=== PATIENT | male | born 1970 | race Caucasian/White ===

== ENCOUNTER 2018-08-14 09:20 | Emergency (ER) | payer OTHER, SELFPAY ==
[2018-08-14 09:21] VITALS: BP 163/103; PULSE 59; RESP 18; TEMP 36.6; O2SAT 98; BMI 31.9
--- NOTE | 2018-08-14 09:33 | CT_ITS ---
STUDY: CT BRAIN WITHOUT CONTRAST REASON FOR EXAM: Male, 48 years old. Laceration above the left orbit following a fall. RADIATION DOSAGE (If Supplied By Facility): CTDIvol = ( 44.99 ) mGy, DLP = ( 782.05 ) mGycm TECHNIQUE: Transaxial CT imaging of the brain was performed without administration of intravenous contrast material. Individualized dose optimization techniques were used for this CT. COMPARISON: None. FINDINGS: Normal soft tissue structures. Normal calvarium. A dressing is seen overlying the left super orbital region. Normal size ventricles and extra-axial spaces for the patient's age. Normal white matter tracts of the cerebral hemispheres. 4.5 mm rounded hypolucency in the left insular cortex of the temporal lobe suggestive of an old lacunar infarct. Normal brainstem. Normal cerebellum. There is no intracranial hemorrhage. There are no findings of an acute ischemic infarction. Normal visualized paranasal sinuses. CT/Brain/Head without Contrast IMPRESSION: Findings suggestive of an old small lacunar infarct in the insular cortex of the left temporal lobe. Electronically Signed: Richar Wade MD at 10:02 EST Tel [phone], Service support ,
--- NOTE | 2018-08-14 09:38 | ED.VISSUMM ---
- ER Visit Summary Date of Service: 08/14/18 Chief Complaint: Fall History of Present Illness: The patient is a 48 M presenting after a fall. Patient was trying to move a cabinet out of a trailer and slipped and fell. He hit his head on the cabinet. He states that things went black for 10 seconds. He states he was awake the entire time and did not completely lose consciousness. He has no amnesia to the event. No vomiting. He states that he initially felt dizzy but this is now improved. He hit his left knee and left shoulder. He is able to ambulate. He has a laceration lateral to his left eye. No vision changes. No other complaints. Last tetanus is unknown. Physical Examination: Vitals are stable. Patient is afebrile. Alert no acute distress. HEENT exam 1.5 cm laceration lateral to left eye. PERRL, EOMI. Neck is nontender Lungs are clear and equal bilaterally. Heart is regular rate and rhythm. Extremities mild anterior left knee and mild anterior left shoulder tenderness with active full range of motion. Skin is warm and dry. No focal neurologic deficit. Remainder of exam is unremarkable. Emergency Department Course and Treatment: CT head shows there is no intracranial hemorrhage. Findings suggestive of an old small lacunar infarct in the insular cortex of the left temporal lobe. Patient was given tetanus IM. He was given Motrin. Laceration was irrigated. Anesthetized with LET. 3, 5-0 simple sutures were placed. Patient tolerated this well. Advised wound care instructions. Advised to follow-up with primary care physician. Advised return to ED for worsening complaints. Disposition: Discharge home Impression: Status post mechanical fall, concussion without loss of consciousness, facial laceration, laceration repair, left knee and left shoulder contusion This note was generated with [employer] dictation software. It may contain incorrect words, spelling, and punctuation that were not noted in review of the chart prior to signing ED Disposition - Plan for ED Patient: Chief Complaint: Head Injury Instructions: ED Concussion, ED Laceration Facial Sutr Tape Referrals: Michel Mahmood MD [Primary Care Provider] -
[2018-08-14] MEDS: Diphth,Pertuss(Acell),Tet Vac 0.5 ML Vial IM (09:44)
[2018-08-14] MEDS: Lidocaine/Epi/Tetracaine 50 ML 1 APPLIC TOPICAL (09:44)
--- NOTE | 2018-08-14 10:28 | ED.DEP ---
ED Disposition - Plan for ED Patient: Chief Complaint: Head Injury Instructions: ED Laceration Facial Sutr Tape, ED Concussion Referrals: Michel Mahmood MD [Primary Care Provider] -
[2018-08-14] MEDS: Ibuprofen 600 MG Tablet PO (10:51)
== END 2018-08-14 11:06 | disposition home or self-care (01) ==
PROVIDERS: Emergency Provider Emergency Medicine; Family Provider Family Medicine; PCP Family Medicine
DX: S06.0X0A Concussion without loss of consciousness, initial encounter (principal); S01.112A Laceration without foreign body of left eyelid and periocular area, initial encounter; S40.012A Contusion of left shoulder, initial encounter; S80.02XA Contusion of left knee, initial encounter; F17.220 Nicotine dependence, chewing tobacco, uncomplicated; W01.198A Fall on same level from slipping, tripping and stumbling with subsequent striking against other object, initial encounter; Y93.89 Activity, other specified; Y92.02 Mobile home as the place of occurrence of the external cause; Y99.8 Other external cause status
CPT/HCPCS: 12011; 70450; 90471; 90715; 99283

== ENCOUNTER 2019-04-07 13:50 | Emergency (ER) | payer OTHER, SELFPAY ==
[2019-04-07 13:51] VITALS: BP 138/97; PULSE 67; RESP 16; TEMP 36.9; O2SAT 95; BMI 34.8
--- NOTE | 2019-04-07 14:35 | RAD_ITS ---
STUDY: X-RAY - RIGHT WRIST REASON FOR EXAM: Male, 48 years old. History of fall. TECHNIQUE: 3 view(s) of the wrist were obtained. COMPARISON: None. FINDINGS: Questionable old avulsion fracture of the ulnar styloid. Normal radiocarpal articulation. Normal distal radioulnar articulation. Avulsion fracture of the dorsal aspect of the triquetrum. Normal carpal articulations. Normal carpometacarpal articulation of the thumb. Normal second through fifth carpometacarpal articulations. Normal visualized metacarpal bones. Dorsal soft tissue swelling. RAD/Wrist min 3 Views IMPRESSION: Avulsion fracture of the dorsal aspect of the triquetrum with overlying soft tissue swelling. Electronically Signed: Richar Wade, at 15:10 EDT , Service support ,
[2019-04-07] MEDS: Ibuprofen 400 MG Tablet 800 MG PO (14:48)
--- NOTE | 2019-04-07 16:03 | ED.VISSUMM ---
- ER Visit Summary Date of Service: 04/07/19 Chief Complaint: Fall from a ladder approximately. Complaining of right wrist pain. History of Present Illness: The patient is a 48 M history of anemia, diverticulitis and prior partial colectomy. Thinks that he may have broken his wrist as a child. But is never had surgery to it. And dominant. He was at work today around 9:30 AM. He fell off a ladder approximately. Said he fell backwards. Is complaining of right wrist pain just distal to his ulnar styloid. Said he had his head but no LOC. Denies any neck pain. No chest or abdominal pain. No significant back pain. Physical Examination: Middle-aged male. No acute distress. Vital signs stable afebrile. HEENT exam unremarkable. Pupils round reactive light. Scalp is nontender there is no hematoma. No facial trauma. C-spine nontender. Thoracic and lumbar spine nontender. Normal range of motion to his neck. Trachea midline. Lungs clear to auscultation bilaterally. Heart regular rhythm no murmur. Chest were nontender. Abdomen soft nontender. Extremities moves all 4. Neurovascular intact. His right wrist distally just distal to the ulnar styloid joint is tender to palpation. He has decreased flexion extension due to pain. Decreased ulnar and radial deviation. There is mild swelling. Itself is nontender neurovascular intact with normal touch sensation and cap refill. Proximal forearm elbow and right shoulder are nontender. Other extremities are unremarkable. Neurologically is awake alert with a GCS of 15. Test Results: X-ray right wrist 3 views read by myself the radiologist shows a avulsion fracture of the right triquetrum bone of the wrist just distal to the ulnar styloid. Emergency Department Course and Treatment: Patient placed in a short arm AP splint. Ice and elevate. Motrin here for pain. [place] for more severe pain. Treatment Plan: Ice and elevate. Motrin for pain and swelling. [place] for more severe pain. Follow-up with of orthopedics. Disposition: Discharge Impression: Fall from approximately 10 feet from a ladder Worker's Comp. Right wrist right atrium wound avulsion fracture Short arm AP splint by ER This note was generated with [employer] dictation software. It may contain incorrect words, spelling, and punctuation that were not noted in review of the chart prior to signing ED Disposition - Plan for ED Patient: Referrals: Michel Mahmood MD [Primary Care Provider] -
--- NOTE | 2019-04-07 16:07 | ED.DEP ---
ED Disposition - Plan for ED Patient: Prescriptions: Hydrocodone/Acetaminophen [[place] 5-325 Tablet] 1 ea PO 4X/DAY PRN PRN #20 tab PRN Reason: Pain Prescription Printed Referrals: Philly Roman DO [STAFF PHYSICIAN] - As soon as possible [facility] [GROUP OF PHYSICIANS] - As Needed Additional Instructions: Ice and elevate your right wrist to decrease pain and swelling. Keep your splint dry and clean. Motrin for pain and swelling and limited [place] for pain. Follow-up with of orthopedics for further evaluation of her right wrist and you may need a cast.
--- NOTE | 2019-04-07 16:27 | NURSING ---
splint applied by dr. chen for rt wrist fx. pt denies any need of sling at this time.
== END 2019-04-07 16:27 | disposition home or self-care (01) ==
PROVIDERS: Emergency Provider Emergency Medicine; Family Provider Family Medicine; PCP Family Medicine
DX: S62.101A Fracture of unspecified carpal bone, right wrist, initial encounter for closed fracture (principal); W11.XXXA Fall on and from ladder, initial encounter; Y93.9 Activity, unspecified; Y92.89 Other specified places as the place of occurrence of the external cause; Y99.0 Civilian activity done for income or pay
CPT/HCPCS: 29125; 73110; 99283

== ENCOUNTER → 2019-04-13 | Outpatient (CLI) | payer OTHER, SELFPAY ==
[2019-04-13 08:58] VITALS: BMI 34.8
--- NOTE | 2019-04-13 09:04 | RAD_ITS ---
STUDY: X-RAY - RIGHT HAND REASON FOR EXAM: Hand and wrist pain, fall last week. TECHNIQUE: 3 view(s) of the hand. COMPARISON: Radiographs of the wrist 04/07/2019. FINDINGS: Normal radiocarpal articulation. Normal distal radioulnar joint. There is an avulsion fracture at the dorsal aspect of the triquetrum. Normal carpal articulations Normal carpometacarpal articulation of the thumb. Normal second through fifth carpometacarpal joints. Normal metacarpi. Normal metacarpophalangeal joint of the thumb. Normal interphalangeal joint of the thumb. Normal proximal and distal phalanges of the thumb. Normal metacarpophalangeal joints of the second through fifth fingers. Normal proximal and distal interphalangeal joints of the second through fifth fingers. Normal phalanges of the second through fifth fingers. There is a small ossicle at the distal aspect of the ulnar styloid process. RAD/Hand Min 3 Views IMPRESSION: Avulsion fracture at the dorsal aspect of the triquetrum. Otherwise, unremarkable x-ray examination of the right hand. Electronically Signed: Biju Martinez MD at 12:56 EDT Tel , Service support ,
--- NOTE | 2019-04-13 09:04 | RAD_ITS ---
STUDY: X-RAY - RIGHT WRIST REASON FOR EXAM: Hand and wrist pain, fall last week. TECHNIQUE: 3 view(s) of the wrist were obtained. COMPARISON: Radiographs 04/07/2019. FINDINGS: Normal visualized distal radius. There is a small ossicle distal aspect of the ulnar styloid process as on the prior study. Normal radiocarpal articulation. Normal distal radioulnar articulation. There is an avulsion fracture at the dorsal aspect of the triquetrum without interval change. Normal carpal articulations. Normal carpometacarpal articulation of the thumb. Normal second through fifth carpometacarpal articulations. Normal visualized metacarpal bones. The soft tissue structures are unremarkable. RAD/Wrist min 3 Views IMPRESSION: No interval change of avulsion fracture at the dorsal aspect of the triquetrum. Electronically Signed: Biju Martinez MD at 12:56 EDT Tel , Service support ,
== END | disposition home or self-care (01) ==
LOC: HPRAD 09:03
PROVIDERS: Family Provider Family Medicine; PCP Family Medicine; Referring Provider Orthopaedic Surgery; Visit Provider Orthopaedic Surgery
DX: S69.91XA Unspecified injury of right wrist, hand and finger(s), initial encounter (principal)
CPT/HCPCS: 73110; 73130

== ENCOUNTER → 2019-05-04 | Outpatient (CLI) | payer OTHER, SELFPAY ==
[2019-05-04 09:00] VITALS: BMI 34.8
--- NOTE | 2019-05-04 09:05 | RAD_ITS ---
STUDY: X-RAY - RIGHT WRIST REASON FOR EXAM: Fracture follow-up. TECHNIQUE: 3 view(s) of the wrist were obtained. COMPARISON: Radiographs 04/13/2019 and 04/07/2019. FINDINGS: Normal visualized distal radius and ulna. Normal radiocarpal articulation. Normal distal radioulnar articulation. There is an avulsion fracture of the dorsal aspect of the triquetrum with little interval change. Normal carpal articulations. Normal carpometacarpal articulation of the thumb. Normal second through fifth carpometacarpal articulations. Normal visualized metacarpal bones. There is a small ossicle adjacent to the ulnar styloid process as on the prior study. RAD/Wrist min 3 Views IMPRESSION: No significant change of dorsal avulsion fracture of the triquetrum. Electronically Signed: Biju Martinez MD at 10:52 EDT Tel , Service support ,
== END | disposition home or self-care (01) ==
LOC: HPRAD 09:04
PROVIDERS: Family Provider Family Medicine; PCP Family Medicine; Referring Provider Orthopaedic Surgery; Visit Provider Orthopaedic Surgery
DX: S62.111A Displaced fracture of triquetrum [cuneiform] bone, right wrist, initial encounter for closed fracture (principal); S69.91XA Unspecified injury of right wrist, hand and finger(s), initial encounter
CPT/HCPCS: 73110

== ENCOUNTER → 2020-09-01 16:39 | Outpatient (CLI) | payer OTHER, SELFPAY ==
[2019-05-27 09:08] VITALS: BMI 34.8
[2020-09-01 17:34] LABS: D-Dimer Quantitative (DVT/PE) 0.27 FEU/ug/m (0.27-0.49)
== END ==
PROVIDERS: PCP Family Medicine; Referring Provider Family Medicine; Visit Provider Family Medicine
DX: R06.02 Shortness of breath (principal)
CPT/HCPCS: 85379

== ENCOUNTER → 2022-08-12 | Outpatient (CLI) | payer OTHER, SELFPAY ==
[2022-08-12 12:14] LABS: Absolute Neutrophil Count 3.7 X10^3/uL (2.0-7.7); Basophil# 0.05 X10^3/uL; Basophil% 0.8 % (0-1); Eosinophil# 0.38 X10^3/uL; Eosinophils% 5.8 % (0-5); Hematocrit 48.8 % (40-54); Hemoglobin 16.6 g/dL (13.0-16.5); Lymphocyte % 30.3 % (19-41); Mean Corpuscular Hgb 29.8 pg (27.0-32.0); Mean Corpuscular Volume 87.6 fL (80-94); Mean Platelet Vol. 10.2 fl (6.2-12.0); Monocyte# 0.45 X10^3/uL; Monocyte% 6.8 % (0-10); NRBC Flagged by Analyzer 0 % (0-5); Neutrophil # 3.67 X10^3/uL (2.7-7.7); Neutrophil % 55.7 % (47-70); Platelet Count 268 K/mm3 (150-450); RBC Distribution Width CV 13.1 % (11.6-14.6); RBC Distribution Width SD 42.4 fl (35.1-43.9); Red Blood Count 5.57 M/mm3 (4.6-6.2); White Blood Count 6.6 K/mm3 (4.4-11.0)
[2022-08-12 12:26] LABS: Insulin 47.8 mU/L (2.6-37.6)
[2022-08-12 12:39] LABS: AST(SGOT) 82 U/L (15-37); Alanine Aminotransfer ALT/SGPT 158 U/L (16-61); Albumin, Serum 4.1 g/dL (3.2-5.0); Alkaline Phosphatase 61 U/L (45-117); Anion Gap 5 (5-15); BUN 15 mg/dL (7-18); BUN/Creat Ratio 13.8 RATIO (10-20); Calcium,Total 9.5 mg/dL (8.5-10.1); Chloride 102 mmol/L (98-107); Cholesterol 275 mg/dL (200); Creatinine, Serum 1.09 mg/dL (0.70-1.30); EST Glomerular Filtration Rate 76 mL/min (>60); Est Glom Filt Rate - Afr Amer 92 mL/min (>60); Globulin 4.1 g/dL (2.2-4.2); Glucose 113 mg/dL (74-106); High Density Lipoprotein 32 mg/dL; PSA,Total - Annual Screen 0.65 ng/mL (0.00-4.00); Protein, Total 8.2 g/dL (6.4-8.2); Sodium Level 136 mmol/L (136-145); Thyroid Stim Hormone (TSH) 1.32 uIU/mL (0.358-3.74); Triglycerides 425 mg/dL
[2022-08-12 12:41] LABS: Hemoglobin A1c 6.1 % (3.8-5.6)
== END | disposition home or self-care (01) ==
LOC: LAB 10:52
PROVIDERS: PCP Internal Medicine; Referring Provider Internal Medicine; Visit Provider Internal Medicine
DX: Z00.00 Encounter for general adult medical examination without abnormal findings (principal); E55.9 Vitamin D deficiency, unspecified; E88.81 Metabolic syndrome and other insulin resistance; Z12.5 Encounter for screening for malignant neoplasm of prostate
CPT/HCPCS: 36415; 80053; 80061; 82306; 83036; 83525; 84153; 84443; 85025; G0103

== ENCOUNTER → 2022-08-22 | Outpatient (CLI) | payer OTHER, SELFPAY ==
--- NOTE | 2022-08-22 07:54 | US_ITS ---
STUDY: ABDOMINAL ULTRASOUND - RIGHT UPPER QUADRANT REASON FOR VISIT: Male, 52 years old insulin resistance, fatty liver TECHNIQUE: Ultrasound evaluation of the right upper quadrant was performed with real-time and static small-scale imaging. TECHNICAL QUALITY: Adequate. COMPARISON: July 25, 2014 CT scan abdomen and pelvis FINDINGS: Liver: The liver measures 21.3 cm. There is increased echogenicity consistent with fatty infiltration. The bile ducts are within normal limits. There is hepatic color flow. The direction of portal flow is hepatopetal. There is no demonstrated mass lesion. Gallbladder: Normal distended gallbladder. The gallbladder wall measures 2 mm. There is a negative sonographic Sanchez''s sign. There is no pericholecystic fluid. There are no gallstones. Common Bile Duct (C.B.D.): The common bile duct measures 3 mm. Pancreas: Normal size of the head, body and tail of the pancreas. There is normal echogenicity of the pancreas. There is no demonstrated pancreatic mass or cyst. Right Kidney: Normal size of the right kidney. The right kidney measures 12.1 x 7.7 x 7.3 cm. Normal renal cortex. The right cortex measures 1.0 cm. There is no demonstrated renal mass or cyst. There is no right hydronephrosis. US/Liver IMPRESSION: Enlarged fatty infiltrated liver. No visualized gallstones or cholecystitis. No visualized hydronephrosis. Electronically Signed: Mindi Nix MD at 16:00 EST ,
== END | disposition home or self-care (01) ==
LOC: US 07:48
PROVIDERS: PCP Internal Medicine; Referring Provider Internal Medicine; Visit Provider Internal Medicine
DX: E88.81 Metabolic syndrome and other insulin resistance (principal); K76.0 Fatty (change of) liver, not elsewhere classified
CPT/HCPCS: 76705

== ENCOUNTER → 2023-04-10 | Outpatient (CLI) | payer OTHER, SELFPAY ==
[2023-04-10 17:04] LABS: Absolute Lymphocyte Count 1.73 X10^3/uL (0.83-4.51); Absolute Neutrophil Count 5.3 X10^3/uL (2.0-7.7); Basophil# 0.04 X10^3/uL; Basophil% 0.5 % (0-1); Eosinophil# 0.31 X10^3/uL; Eosinophils% 3.9 % (0-5); Hematocrit 45.7 % (40-54); Hemoglobin 15.3 g/dL (13.0-16.5); Lymphocyte # 1.73 X10^3/ul (0.83-4.51); Lymphocyte % 21.7 % (19-41); Mean Corp Hgb Conc 33.5 g/dL (32-36); Mean Corpuscular Hgb 29.2 pg (27.0-32.0); Mean Corpuscular Volume 87.2 fL (80-94); Mean Platelet Vol. 10.4 fl (6.2-12.0); Monocyte# 0.56 X10^3/uL; NRBC Flagged by Analyzer 0 % (0-5); Neutrophil % 66.5 % (47-70); Platelet Count 248 K/mm3 (150-450); RBC Distribution Width CV 13.2 % (11.6-14.6); Red Blood Count 5.24 M/mm3 (4.6-6.2)
[2023-04-10 17:57] LABS: Hemoglobin A1c 5.8 % (3.8-5.6)
[2023-04-10 18:05] LABS: ALB/GLOB Ratio 1.2 RATIO (0.9-2.4); AST(SGOT) 35 U/L (15-37); Alanine Aminotransfer ALT/SGPT 94 U/L (16-61); Albumin, Serum 4.3 g/dL (3.2-5.0); Alkaline Phosphatase 61 U/L (45-117); Anion Gap 6 (5-15); BUN 25 mg/dL (7-18); BUN/Creat Ratio 21.6 RATIO (10-20); Calcium,Total 9.8 mg/dL (8.5-10.1); Chloride 106 mmol/L (98-107); Cholesterol 217 mg/dL (200); Creatinine, Serum 1.16 mg/dL (0.70-1.30); EST Glomerular Filtration Rate 70 mL/min (>60); Est Glom Filt Rate - Afr Amer 85 mL/min (>60); Free T3 2.7 pg/mL (2.18-3.98); Globulin 3.5 g/dL (2.2-4.2); Glucose 99 mg/dL (74-106); High Density Lipoprotein 28 mg/dL; Magnesium 2.4 mg/dL (1.6-2.6); Potassium 4.4 mmol/L (3.5-5.1); Protein, Total 7.8 g/dL (6.4-8.2); Sodium Level 139 mmol/L (136-145); T4 Free Direct 0.89 ng/dL (0.76-1.46); Thyroid Stim Hormone (TSH) 0.94 uIU/mL (0.358-3.74); Triglycerides 518 mg/dL
[2023-04-10 21:38] LABS: Insulin 25.6 mU/L (2.6-37.6); Vitamin B12 321 pg/mL (211-911); Vitamin D,25 Hydroxy 33.1 ng/mL
[2023-04-18 11:09] LABS: Testosterone, % Free 3.72 % (1.50-4.20); Testosterone, Total 121 ng/dL (264-916)
== END | disposition home or self-care (01) ==
LOC: LAB 16:12
PROVIDERS: PCP Internal Medicine; Referring Provider Internal Medicine; Visit Provider Internal Medicine
DX: K76.0 Fatty (change of) liver, not elsewhere classified (principal); E88.81 Metabolic syndrome and other insulin resistance; E55.9 Vitamin D deficiency, unspecified; R53.83 Other fatigue; R73.9 Hyperglycemia, unspecified; Z13.220 Encounter for screening for lipoid disorders
CPT/HCPCS: 36415; 80053; 80061; 82306; 82607; 83036; 83525; 83735; 84402; 84403; 84439; 84443; 84481; 85025

== ENCOUNTER 2023-05-29 09:45 | Day surgery (SDC) | payer OTHER, SELFPAY ==
[2023-05-29] VITALS (8 sets, daily range): BP systolic 93–133; BP diastolic 60–94; PULSE 46–52; RESP 16; TEMP 36–36.2; O2SAT 94–97; BMI 34.2
--- NOTE | 2023-05-29 | COLBX_PTH ---
PATIENT: ALEC GOODWIN LOC: EN U#:[id number] AGE/SX: 53/M ROOM: RE05/29/[address]: Dr. Luke Cantu DO : 1970 BED: DIS: 05/29/2023 SPEC #: [id number] RECD: 05/29/23 14:17 STATUS: LIN REDiaz #: [id number] ANSLEY: 05/29/23 00:[address]: Luke Cantu DEPT: SURGICAL PATHOLOGY RECD BY: Abebe Klein ENTERED: 05/29/23 14:18 SP TYPE: COLON BX OTHR DR: Dr. Jennifer Irizarry MD Tissues: Cecum, NOS Procedures: Surgery Specimen Level IV HEADER OPERATION: Colonoscopy - open access, biopsy PRE-OP DIAGNOSIS: Colon cancer screening TISSUE SUBMITTED: Cecal polyp biopsy MICROSCOPIC DIAGNOSIS Cecal polyp, biopsy: Tubular adenoma. AM:yana 05/30/2023 MICROSCOPIC DESCRIPTION Slides are reviewed. GROSS DESCRIPTION Received in fixative is one container labeled with the patient's name and designated cecal polyp biopsy. The specimen consists of one irregular fragment of light obrien soft tissue that measures 0.3 x 0.3 x 0.1 cm. The specimen is totally submitted in one cassette. / SJ:rg 05/29/2023 TC:5 CPT: 83458
[2023-05-29] MEDS: Lactated Ringers 1,000 ML 15 ML IV (10:30)
--- NOTE | 2023-05-29 11:00 | PCM.HP.STD ---
HPI - General General Date of Admission: 05/29/23 Date of Service: 05/29/23 Chief Complaint: Screening colonoscopy HPI Narrative ALEC GOODWIN, is a 53 M who presents for screening colonoscopy. He has a past medical history of severe diverticulitis status post sigmoid colectomy with primary anastomosis. His last colonoscopy was approximately 10 years ago and he not have any polyps done at time. He is not having abdominal pain. He does not have any nausea, vomiting or diarrhea. Overall is in very good health. [facility] Medical History (Updated 05/27/23 @ 15:36 by Taylor Ramirez) Alcohol use Back pain Chewing tobacco use CPAP (continuous positive airway pressure) dependence Fatty liver High cholesterol History of diverticulitis History of stress test Hx of colonic polyps Hypertension Loss of hearing Shortness of breath on exertion TIA (transient ischemic attack) Home Medications cholecalciferol (vitamin D3) 50 mcg (2,000 unit) capsule 50 mcg PO DAILY 08/14/22 [History Last Taken Unknown] lisinopril 20 mg tablet 20 mg PO DAILY #90 tabs 10/03/22 [Rx Last Taken Unknown] metronidazole 250 mg tablet 250 mg PO Q8H 10 days #30 tabs 05/21/23 [Rx Last Taken Unknown] Allergy/AdvReac Type Severity Reaction Status Date / Time No Known Allergies Allergy Verified 05/29/23 10:12 Family History Grandfather Myocardial infarction age 48 from this Other Hypertension Surgical History (Updated 05/27/23 @ 15:36 by Taylor Ramirez) History of colectomy Hx of colonoscopy Social History adopted: No household members: spouse housing: house number of children: 2 current occupational status: employed current occupation: new manager management leisure activities: hunting and fishing history of recent travel: Yes (cruise in june) sexually active: Yes Smoking Status: Current every day smoker tobacco type: smokeless tobacco Smokeless tobacco user: chewing tobacco alcohol intake: current details: season drinkier in summer substance use type: does not use well-balanced diet: rarely or never caffeine: Yes eating out: 4 or more times/week during the past year weight has: increased > 10 lbs what type of physical activity do you participate in: none berto/muslim: Mandaeism seatbelt use: always do you feel safe at home: Yes ROS Review of Systems ROS Unobtainable: other Constitutional Constitutional: Denies fatigue, fever(s), poor appetite, weight gain or weight loss ENT HEENT: Denies mouth lesions Cardiovascular Cardiovascular: Denies abdominal bloating, abdominal edema or abdominal pain Respiratory/Chest Respiratory/Chest: Denies change in mental status, change in phlegm color, chest congestion or chest tightness Gastrointestinal Gastrointestinal: Denies belching, bloating, change in bowel habits, change in stool character, chewing difficulty, coffee ground emesis, constipation, cramping, diarrhea, dyspepsia, dysphagia, early satiety, excessive flatus, fecal incontinence, heartburn, hematemesis, hematochezia, hemorrhoids, loose stools, melena, nausea, odynophagia, rectal bleeding, tenesmus, vomiting or weight changes Genitourinary Genitourinary: Denies abdominal discomfort, burning urination or itching Musculoskeletal Musculoskeletal: Reports as per HPI; Denies muscle weakness or myalgias Integumentary Integumentary: Denies jaundice Neurologic Neurologic: Denies lack of coordination or weakness Psychiatric Psychiatric: Denies confusion, depression, memory loss, mood swings, paranoia or suicidal ideation Endocrine Endocrinology: Denies systems reviewed and no addt'l complaints, except as documented Hematologic/Lymphatic Hematologic/Lymphatic: Denies anemia, easy bleeding, easy bruising or lymphadenopathy Allergic/Immunologic Allergic/Immunologic: Denies systems reviewed and no addt'l complaints, except as documented Vital Signs Vital Signs Vital Signs: 05/29/23 10:16 05/29/23 10:16 Temperature 97.2 F L Temperature Source Temporal Pulse Rate 52 L Respiratory Rate 16 Respiratory Pattern Normal Blood Pressure 133/94 H Blood Pressure Mean 107 Blood Pressure Source Monitor Blood Pressure Position Semi-Fowlers Blood Pressure Location Left Arm Pulse Ox 97 Oxygen Delivery Method Room Air Weight Weight: 224 lb 13.944 oz Body Mass Index (BMI) 34.2 Physical Exam Const alert General Appearance: cooperative Orientation / Consciousness: oriented to person HEENT hearing grossly normal bilaterally Head and Scalp: normal to inspection Face and Sinus: face symmetric Nose: external nose normal Mouth: oral and palatal mucosa normal Eyes conjunctivae normal General Eye: normal appearance of both eyes Neck full ROM General: normal visual inspection Lymph Lymphatic: no lymphadenopathy noted Chest inspection of chest normal and palpation of chest normal Chest: symmetrical chest wall rise Resp normal respiratory effort Effort and Inspection: able to speak in complete sentences Cardio regular rate GI non-distended Percussion: normal to percussion Rectal Exam: deferred Neuro Speech: speech normal Gait (Neuro): normal gait Assessment & Plan Assessment/Plan (1) Colon cancer screening: PLAN: He was explained alternatives, risk, benefits include not withstanding bleeding, infection, sepsis, perforation, need for emergent surgery . He will have an ASA of 3.
--- NOTE | 2023-05-29 11:25 | OP.COLON_ITS ---
Patient Name: Martínez Carrington Procedure Date: 05/29/2023 10:58 AM Date of : 1970 Age: 53 Procedure: Colonoscopy Indications: Screening for colorectal malignant neoplasm Providers: Luke Cantu DO Referring MD: Jennifer Irizarry Medicines: Monitored Anesthesia Care Patient Profile: This is a 53 year old male. Refer to note in patient chart for documentation of history and physical. Last Colonoscopy: more than 10 years ago. Complications: No immediate complications. Procedure: Pre-Anesthesia Assessment: - Prior to the procedure, a History and Physical was performed, and patient medications and allergies were reviewed. The patient is competent. The risks and benefits of the procedure and the sedation options and risks were discussed with the patient. All questions were answered and informed consent was obtained. Patient identification and proposed procedure were verified by the physician in the pre-procedure area. Mental Status Examination: alert and oriented. Respiratory Examination: clear to auscultation. CV Examination: normal. Prophylactic Antibiotics: The patient does not require prophylactic antibiotics. Prior Anticoagulants: The patient has taken no anticoagulant or antiplatelet agents. ASA Grade Assessment: II - A patient with mild systemic disease. After reviewing the risks and benefits, the patient was deemed in satisfactory condition to undergo the procedure. The anesthesia plan was to use monitored anesthesia care (MAC). Immediately prior to administration of medications, the patient was re-assessed for adequacy to receive sedatives. The heart rate, respiratory rate, oxygen saturations, blood pressure, adequacy of pulmonary ventilation, and response to care were monitored throughout the procedure. The physical status of the patient was re-assessed after the procedure. After I obtained informed consent, the scope was passed under direct vision. Throughout the procedure, the patient's blood pressure, pulse, and oxygen saturations were monitored continuously. The colonoscope was introduced through the anus and advanced to the cecum, identified by appendiceal orifice and ileocecal valve. The colonoscopy was performed without difficulty. The patient tolerated the procedure well. The quality of the bowel preparation was adequate. The ileocecal valve, appendiceal orifice, and rectum were photographed. Scope In: 11:07:35 AM Scope Withdrawal Time 0 hours 8 minutes 4 seconds Scope Out: 11:17:33 AM Total Procedure Duration Time 0 hours 9 minutes 58 seconds Findings: The perianal and digital rectal examinations were normal. A 7 mm polyp was found in the cecum. The polyp was sessile. The polyp was removed with a cold snare. Resection and retrieval were complete. Verification of patient identification for the specimen was done. Estimated blood loss was minimal. Multiple small and large-mouthed diverticula were found in the recto-sigmoid colon, sigmoid colon, descending colon, splenic flexure, transverse colon, hepatic flexure and ascending colon. There was evidence of a prior end-to-end colo-colonic anastomosis in the sigmoid colon. This was patent and was characterized by healthy appearing mucosa. Impression: - One 7 mm polyp in the cecum, removed with a cold snare. Resected and retrieved. - Diverticulosis in the recto-sigmoid colon, in the sigmoid colon, in the descending colon, at the splenic flexure, in the transverse colon, at the hepatic flexure and in the ascending colon. - Patent end-to-end colo-colonic anastomosis, characterized by healthy appearing mucosa. Recommendation: - Discharge patient to home. - Resume previous diet. - Continue present medications. - Await pathology results. - Repeat colonoscopy in 5 years for surveillance. Procedure Code(s): --- Professional --- 81119, Colonoscopy, flexible; with removal of tumor(s), polyp(s), or other lesion(s) by snare technique CPT copyright 2021 [employer]. All rights reserved. The codes documented in this report are preliminary and upon shop girl review may be revised to meet current compliance requirements. Luke Cantu DO 05/29/2023 11:25:01 AM This report has been signed electronically. Number of Addenda: 0 Note Initiated On: 05/29/2023 10:58 AM
--- NOTE | 2023-05-29 11:25 | OP.CCLET_ITS ---
05/29/2023 Jennifer Irizarry [facility] [address] [place] [address] Re : Colonoscopy procedure for Martínez Carrington Dear Dr. Irizarry This procedure was performed on May. My impressions and recommendations are as follows: Impressions : - One 7 mm polyp in the cecum, removed with a cold snare. Resected and retrieved. - Diverticulosis in the recto-sigmoid colon, in the sigmoid colon, in the descending colon, at the splenic flexure, in the transverse colon, at the hepatic flexure and in the ascending colon. - Patent end-to-end colo-colonic anastomosis, characterized by healthy appearing mucosa. Recommendations : - Discharge patient to home. - Resume previous diet. - Continue present medications. - Await pathology results. - Repeat colonoscopy in 5 years for surveillance. My findings are described in the full procedure note, which is enclosed. If I can be of further assistance, please feel free to contact me at . Sincerely, Luke Cantu, 05/29/2023 11:25:01 AM This report has been signed electronically.
== END 2023-05-29 12:18 | disposition home or self-care (01) ==
LOC: EN 09:45 → AC 09:47
PROVIDERS: PCP Internal Medicine; Referring Provider Internal Medicine; Visit Provider Internal Medicine Gastroenterology
PROC: 0DJD8ZZ Inspection of Lower Intestinal Tract, Via Natural or Artificial Opening Endoscopic (ICD-10-PCS; CPT 45378; principal; 2023-05-29 10:55)
DX: Z12.11 Encounter for screening for malignant neoplasm of colon (principal); D12.0 Benign neoplasm of cecum; K57.30 Diverticulosis of large intestine without perforation or abscess without bleeding; F17.220 Nicotine dependence, chewing tobacco, uncomplicated; I10 Essential (primary) hypertension; K76.0 Fatty (change of) liver, not elsewhere classified; M54.50 Low back pain, unspecified; G89.29 Other chronic pain; Z79.899 Other long term (current) drug therapy; Z86.73 Personal history of transient ischemic attack (TIA), and cerebral infarction without residual deficits; Z86.010 Personal history of colon polyps
CPT/HCPCS: 45385; 88305; J7120; J2405